=== PATIENT | male | born 1955 | race Caucasian/White ===

== ENCOUNTER 2022-08-18 20:57 | Emergency (ER) | payer SELFPAY ==
[~2022-08-18] VITALS: Ht 175.2 cm; Wt 59.0 kg
--- NOTE | 2022-08-18 21:06 | ED Chest Pain ---
General Chief Complaint: Chest Pain Stated Complaint: CHEST PAIN History of Present Illness Date Seen by Provider: Aug 18, 2022 Time Seen by Provider: 21:02 Initial Comments 67 yr M with PMH of chronic alcoholism/ non-compliant with medical care or [facility] and has not been on his BP medication in a year, is here with c/o concern for having a heart attack. Patient had 6 beers and then fell asleep, and when he woke up his left shoulder and left arm is hurting and is radiating up his neck to his jaw. Patient stated that he had a little bit of chest pain at that time as well which resolved rather quickly. Patient has been drinking minimum 6 beers a day for very long time. Patient does not have any chest pain or shortness of breath or arm pain in the ER at all. Denies fever and chills, shortness of breath, palpitations, abdominal pain, dizziness. Allergies and Home Medications Allergies Coded Allergies: Penicillins (Verified Allergy, Unknown, 08/18/22) Patient Home Medication List Home Medication List Reviewed: Yes No Active Prescriptions or Reported Meds Review of Systems Review of Systems Constitutional: no symptoms reported EENTM: No Symptoms Reported Respiratory: No Symptoms Reported Cardiovascular: Chest Pain Gastrointestinal: No Symptoms Reported Genitourinary: No Symptoms Reported Musculoskeletal: no symptoms reported Skin: no symptoms reported Psychiatric/Neurological: No Symptoms Reported Endocrine: No Symptoms Reported Hematologic/Lymphatic: No Symptoms Reported Physical Exam Vital Signs Vital Signs - First Documented 08/18/22 20:58 Temp 36.6 Pulse 79 Resp 17 B/P (MAP) 154/115 (128) Pulse Ox 98 O2 Delivery Room Air Capillary Refill : Height, Weight, BMI Height: '" Weight: lbs. oz. 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 Norm as Tested Skin: Normal Color Lymphatic: No Adenopathy Focused Exam Lactate Level Lactic Acid Level Progress/Results/Core Measures Results/Orders Lab Results Laboratory Tests Test 08/18/22 21:05 08/18/22 22:00 Range/Units White Blood Count 9.1 4.3-11.0 10^3/uL Red Blood Count 5.47 4.30-5.52 10^6/uL Hemoglobin 18.0 H 13.3-17.7 g/dL Hematocrit 51 40-54 % Mean Corpuscular Volume 93 80-99 fL Mean Corpuscular Hemoglobin 33 25-34 pg Mean Corpuscular Hemoglobin Concent 35 32-36 g/dL Red Cell Distribution Width 12.6 10.0-14.5 % Platelet Count 154 130-400 10^3/uL Mean Platelet Volume 9.8 9.0-12.2 fL Immature Granulocyte % (Auto) 1 % Neutrophils (%) (Auto) 58 42-75 % Lymphocytes (%) (Auto) 29 12-44 % Monocytes (%) (Auto) 9 0-12 % Eosinophils (%) (Auto) 3 0-10 % Basophils (%) (Auto) 1 0-10 % Neutrophils # (Auto) 5.3 1.8-7.8 10^3/uL Lymphocytes # (Auto) 2.7 1.0-4.0 10^3/uL Monocytes # (Auto) 0.8 0.0-1.0 10^3/uL Eosinophils # (Auto) 0.3 0.0-0.3 10^3/uL Basophils # (Auto) 0.1 0.0-0.1 10^3/uL Immature Granulocyte # (Auto) 0.1 0.0-0.1 10^3/uL Prothrombin Time 12.9 12.2-14.7 SEC INR Comment 0.9 0.8-1.4 Activated Partial Thromboplast Time 31 24-35 SEC D-Dimer 0.30 0.00-0.49 UG/ML Sodium Level 128 L 135-145 MMOL/L Potassium Level 4.4 3.6-5.0 MMOL/L Chloride Level 93 L 98-107 MMOL/L Carbon Dioxide Level 26 21-32 MMOL/L Anion Gap 9 5-14 MMOL/L Blood Urea Nitrogen 6 L 7-18 MG/DL Creatinine 0.98 0.60-1.30 MG/DL Estimat Glomerular Filtration Rate 85 BUN/Creatinine Ratio 6 Glucose Level 102 70-105 MG/DL Calcium Level 8.8 8.5-10.1 MG/DL Corrected Calcium 9.0 8.5-10.1 MG/DL Magnesium Level 2.2 1.6-2.4 MG/DL Total Bilirubin 0.6 0.1-1.0 MG/DL Aspartate Amino Transf (AST/SGOT) 18 5-34 U/L Alanine Aminotransferase (ALT/SGPT) 13 0-55 U/L Alkaline Phosphatase 78 40-136 U/L Troponin I < 0.30 <0.30 NG/ML Pro-B-Type Natriuretic Peptide 1024.0 H <125.0 PG/ML Total Protein 6.3 L 6.4-8.2 GM/DL Albumin 3.8 3.2-4.5 GM/DL Serum Alcohol 99 H <10 MG/DL Urine Color YELLOW Urine Clarity CLEAR Urine pH 6.5 5-9 Urine Specific [facility] <=1.005 1.016-1.022 Urine Protein NEGATIVE NEGATIVE Urine Glucose (UA) NEGATIVE NEGATIVE Urine Ketones NEGATIVE NEGATIVE Urine Nitrite NEGATIVE NEGATIVE Urine Bilirubin NEGATIVE NEGATIVE Urine Urobilinogen 0.2 < = 1.0 MG/DL Urine Leukocyte Esterase NEGATIVE NEGATIVE Urine RBC (Auto) TRACE-I H NEGATIVE Urine RBC 0-2 /HPF Urine WBC RARE /HPF Urine Squamous Epithelial Cells RARE /HPF Urine Crystals NONE /LPF Urine Bacteria NEGATIVE /HPF Urine Casts NONE /LPF Urine Mucus NEGATIVE /LPF Urine Culture Indicated NO Urine Opiates Screen NEGATIVE NEGATIVE Urine Oxycodone Screen NEGATIVE NEGATIVE Urine Methadone Screen NEGATIVE NEGATIVE Urine Propoxyphene Screen NEGATIVE NEGATIVE Urine Barbiturates Screen NEGATIVE NEGATIVE Ur Tricyclic Antidepressants Screen NEGATIVE NEGATIVE Urine Phencyclidine Screen NEGATIVE NEGATIVE Urine Amphetamines Screen NEGATIVE NEGATIVE Urine Methamphetamines Screen NEGATIVE NEGATIVE Urine Benzodiazepines Screen NEGATIVE NEGATIVE Urine Cocaine Screen NEGATIVE NEGATIVE Urine Cannabinoids Screen NEGATIVE NEGATIVE My Orders Orders - RACHID VALLEJO MD Continuous Ekg Monitoring (08/18/22 21:04) Ekg Tracing (08/18/22 21:04) Chest 1 View Ap/Pa Only (08/18/22 21:05) Alcohol (08/18/22 21:05) Cbc With Automated Diff (08/18/22 21:05) Comprehensive Metabolic Panel (08/18/22 21:05) Fibrin Degradation Products (08/18/22 21:05) Drug Screen Stat (Urine) (08/18/22 21:05) Magnesium (08/18/22 21:05) Protime With Inr (08/18/22 21:05) Partial Thromboplastin Time (08/18/22 21:05) Ua Culture If Indicated (08/18/22 21:05) Probnp Fs (08/18/22 21:05) Troponin I Fs (08/18/22 21:05) Thiamine Injection (Vitamin B-1 Injectio (08/18/22 21:42) Folic Acid Tablet (Folic Acid Tablet) (08/18/22 21:45) Aspirin Chewable Tablet (Baby Aspirin Ch (08/18/22 21:45) Ed Iv/Invasive Line Start (08/18/22 21:43) Ns Iv 1000 Ml (Sodium Chloride 0.9%) (08/18/22 21:45) Hydralazine Injection (Apresoline Inject (08/18/22 23:00) Medications Given in ED Current Medications Medications Dose Ordered Sig/Federico Route Start Time Stop Time Status Last Admin Dose Admin Aspirin 324 mg ONCE ONCE PO 08/18/22 21:45 08/18/22 21:46 DC 08/18/22 21:54 324 MG Folic Acid 1 mg ONCE ONCE PO 08/18/22 21:45 08/18/22 21:46 DC 08/18/22 21:53 1 MG Hydralazine HCl 10 mg ONCE ONCE IV 08/18/22 23:00 08/18/22 23:01 DC 08/18/22 23:04 10 MG Vital Signs/I&O 08/18/22 20:58 Temp 36.6 Pulse 79 Resp 17 B/P (MAP) 154/115 (128) Pulse Ox 98 O2 Delivery Room Air Progress Progress Note : Progress Note 1. ACS RULED OUT: HYPERTENSIVE URGENCY - CXR: no acute findings - EKG: non-ischemic - Troponin: undetectable - CBC/ CMP: unremarkable - UDS:negative - Hydralazine 10mg iv STAT, BP improved with this - BNP: elevated: 1,024, will need work up for CHF as out-patient and will need an ECHO - Follow up with PCP within 7days. Call to make appointment. 2. CHRONIC ALCOHOLISM: - s. ETOH:99 - NS IVF bolus STAT/ Thiamine iv/ Folic acid given in ER - Advised multivitamin with B complex and thiamine daily - Advised to cut down and stop using alcohol. Advised that alcohol cessation should improve BP elevation. - Adequate hydration advised. EKG : EKG Time: 20:58 Rate: 73 Rhythm: Normal Sinus ECG Comparisson: No Previous ECG Available ECG Impression: Nonspecific Changes Diagnostic Imaging Diagonstic Imaging: Xray Plain Films/CT/US/NM/MRI: chest Comments [facility], [place] NAME: TAMERA HAN [facility] REC#: [id number] PT STATUS: REG ER : 1955 PHYSICIAN: RACHID VALLEJO MD ADMIT DATE: 08/18/22/ER FS Draft Date of Exam:08/18/22 CHEST 1 VIEW AP/PA ONLY INDICATION: Chest pain Frontal chest obtained at 9:20 p.m. Heart and mediastinal silhouette are normal in appearance. The lungs are clear. There is no pneumothorax or pleural fluid. IMPRESSION: Negative chest. Dictated on workstation # [id number] Dict: 08/18/222127 Trans: 08/18/222132 CVB [id number] Interpreted by: MICHELLE SHERWOOD MD Electronically signed by: Departure Impression Primary Impression: Chronic alcohol dependence, continuous Additional Impressions: Hypertensive urgency Elevated brain natriuretic peptide (BNP) level Disposition: 01 HOME, SELF-CARE Condition: Stable Departure-Patient Inst. Referrals: NO,LOCAL PHYSICIAN (PCP/Family) Primary Care Physician Patient Instructions: Alcohol Use Disorder (DC), High Blood Pressure (DC), Chest Pain That Is Not Caused by the Heart (DC) Add. Discharge Instructions: - BNP: elevated: 1,024, will need work up for CHF as out-patient and will need an ECHO - Follow up with PCP within 7days. Call to make appointment. - Advised multivitamin with B complex and thiamine daily - Advised to cut down and stop using alcohol. Advised that alcohol cessation should improve BP elevation. - Adequate hydration advised. All discharge instructions reviewed with patient and/or family. Voiced unde rstanding. Scripts No Active Prescriptions or Reported Meds RACHID VALLEJO MD Aug 18, 2022 21:06
[2022-08-18 21:29] LABS: BASOPHILS # (AUTO) 0.1 10^3/uL (0.0-0.1); BASOPHILS % (AUTO) 1 % (0-10); EOSINOPHILS # (AUTO) 0.3 10^3/uL (0.0-0.3); EOSINOPHILS % (AUTO) 3 % (0-10); HEMATOCRIT 51 % (40-54); LYMPHOCYTES # (AUTO) 2.7 10^3/uL (1.0-4.0); LYMPHOCYTES % (AUTO) 29 % (12-44); MEAN CORPUSCULAR HEMOGLOBIN 33 pg (25-34); MEAN CORPUSCULAR HGB CONC 35 g/dL (32-36); MEAN CORPUSCULAR VOLUME 93 fL (80-99); MEAN PLATELET VOLUME 9.8 fL (9.0-12.2); MONOCYTES # (AUTO) 0.8 10^3/uL (0.0-1.0); MONOCYTES % (AUTO) 9 % (0-12); NEUTROPHILS # (AUTO) 5.3 10^3/uL (1.8-7.8); NEUTROPHILS % (AUTO) 58 % (42-75); PLATELET COUNT 154 10^3/uL (130-400); WHITE BLOOD COUNT 9.1 10^3/uL (4.3-11.0)
--- NOTE | 2022-08-18 21:33 | Diagnostic Imaging Report ---
INDICATION: Chest pain Frontal chest obtained at 9:20 p.m. Heart and mediastinal silhouette are normal in appearance. The lungs are clear. There is no pneumothorax or pleural fluid. IMPRESSION: Negative chest. Dictated by: Dictated on workstation # [id number]
[2022-08-18] MEDS ORDERED: THIAMINE INJECTION 100 MG in NS (IVPB) 50 ML IV STA (21:42)
[2022-08-18] MEDS ORDERED: NS IV 1000 ML 1,000 ML IV SCH (21:45)
[2022-08-18] MEDS ORDERED: ASPIRIN 81 MG CHEW (CHILDREN'S ASA) PO ONE (21:45)
[2022-08-18] MEDS ORDERED: FOLIC ACID 1 MG TAB PO ONE (21:45)
[2022-08-18 21:58] LABS: FIBRIN DEGRADATION PRODUCTS 0.3 UG/ML (0.00-0.49); INR 0.9 (0.8-1.4); PROTHROMBIN TIME PATIENT 12.9 SEC (12.2-14.7)
[2022-08-18 22:04] LABS: ALANINE AMINOTRANSFERASE 13 U/L (0-55); ALKALINE PHOSPHATASE 78 U/L (40-136); BILIRUBIN,TOTAL 0.6 MG/DL (0.1-1.0); BUN/CREATININE RATIO 6; CALCIUM 8.8 MG/DL (8.5-10.1); CARBON DIOXIDE 26 MMOL/L (21-32); CHLORIDE 93 MMOL/L (98-107); CREATININE SERUM 0.98 MG/DL (0.60-1.30); GFR ESTIMATED 85; GLUCOSE 102 MG/DL (70-105); MAGNESIUM 2.2 MG/DL (1.6-2.4); POTASSIUM 4.4 MMOL/L (3.6-5.0); SODIUM 128 MMOL/L (135-145)
[2022-08-18 22:05] LABS: ALBUMIN 3.8 GM/DL (3.2-4.5); TOTAL PROTEIN 6.3 GM/DL (6.4-8.2)
[2022-08-18 22:17] LABS: BILIRUBIN,URINE NEGATIVE (NEGATIVE); CLARITY,URINE CLEAR; COLOR,URINE YELLOW; GLUCOSE, URINE (UA) NEGATIVE (NEGATIVE); KETONES,URINE NEGATIVE (NEGATIVE); LEUKOCYTE ESTERASE ,URINE NEGATIVE (NEGATIVE); NITRITE,URINE NEGATIVE (NEGATIVE); PH,URINE 6.5 (5-9); PROTEIN,URINE NEGATIVE (NEGATIVE)
[2022-08-18 22:31] LABS: BACTERIA,URINE NEGATIVE /HPF; RBC,URINE 0-2 /HPF; SQUAMOUS EPITHELIAL CELL,UR RARE /HPF; WBC,URINE RARE /HPF
[2022-08-18 22:32] LABS: AMPHETAMINE SCREEN, URINE NEGATIVE (NEGATIVE); BARBITURATE SCREEN URINE NEGATIVE (NEGATIVE); BENZODIAZEPINES SCREEN URINE NEGATIVE (NEGATIVE); CANNABINOID SCREEN, URINE NEGATIVE (NEGATIVE); COCAINE SCREEN URINE NEGATIVE (NEGATIVE); METHADONE STAT NEGATIVE (NEGATIVE); OPIATE SCREEN URINE NEGATIVE (NEGATIVE); OXYCODONE STAT NEGATIVE (NEGATIVE); PROPOXYPHENE STAT NEGATIVE (NEGATIVE); TRICYCLIC ANTIDEPRESSANTS SCRE NEGATIVE (NEGATIVE)
[2022-08-18] MEDS ORDERED: hydrALAZINE (APESOLINE) 20 MG/ML VIAL IV ONE (23:00)
[2022-08-18 23:35] VITALS: BP 162/80
== END 2022-08-18 23:35 | disposition home or self-care (01) ==
LOC: ER FS 21:01
DX: F10.20 Alcohol dependence, uncomplicated (principal); I16.0 Hypertensive urgency; Z28.310 Unvaccinated for COVID-19
CPT/HCPCS: 36415; 71045; 80053; 80306; 81000; 83735; 83880; 84484; 85025; 85379; 85610; 85730; 99284; G0480; 80320; 93005